=== PATIENT | male | born 1950 | race Two or more races ===

== ENCOUNTER 2021-09-26 10:35 | Emergency (ER) | payer OTHER, SELFPAY ==
--- NOTE | ~2021-09-26 | XR_ITS ---
EXAMINATION: XR RIBS, LEFT CLINICAL INFORMATION: Pain status post fall COMPARISON: None TECHNIQUE: 5 views FINDINGS: S-shaped scoliosis noted. Clips consistent cholecystectomy. Lungs are clear. No consolidation, pneumothorax, or pleural effusion. The cardiomediastinal silhouette and pulmonary vasculature are normal. Osseous structures are unremarkable. Ribs are intact. No fractures are identified. XR/XR ribs LT min 3V w CXR1V IMPRESSION: No fracture.
[2021-09-26 11:13] VITALS: BP 189/98; PULSE 65; RESP 18; TEMP 36; O2SAT 97; BMI 24.2
[2021-09-26 18:09] VITALS: BP 209/101; PULSE 57; TEMP 36.9; O2SAT 98
[2021-09-26] MEDS: Acetaminophen 325 MG TABLET 650 MG PO (18:26)
--- NOTE | 2021-09-26 18:28 | PC.NURSE ---
pts BP elevated. informed charge of high BP. pt reporting 11/14 pain medicated with PO tylenol. lungs clear throughout.
[2021-09-26 19:21] VITALS: BP 186/97; PULSE 56; RESP 14; O2SAT 98
[2021-09-26 19:24] VITALS: BP 181/98
--- NOTE | 2021-09-26 20:09 | ED_ITS ---
HPI - Fall General Chief Complaint: Fall Stated Complaint: L Side Pain S/P Fall 3 Days Ago Time Seen by Provider: 09/26/21 14:14 Source: patient Mode of arrival: ambulatory Limitations: language barrier History of Present Illness HPI Narrative: 71-year-old male presents for left-sided chest wall pain and bruising after falling off of his tractor on Tuesday. 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 He did not report hitting his head, losing consciousness, and denies neck pain, palpitations, shortness of breath, diaphoresis, abdominal pain, abdominal distention, dysuria, hematuria, loss of balance, or symptoms indicating cauda equina. MD complaint: fall Onset (ago): day(s) (4) Fall from: standing and down stairs (#) (1) Fall witnessed: no Place fall occurred: work Loss of consciousness: none Prolonged down time: no Symptoms prior to fall: none Context: tripped/slipped Location of injury: chest Severity: moderate Severity scale (1-10): 6 Quality: aching Associated symptoms (after fall): denies Related Data Previous Rx's Medication Instructions Recorded oxycodone 5 mg tablet 5 mg PO Q8H PRN pain 3 days #9 tabs 09/26/21 Allergies Allergy/AdvReac Type Severity Reaction Status Date / Time No Known Allergies Allergy Verified 09/26/21 11:14 Review of Systems Review of Systems: Constitutional: No Fever, No Chills ENT/Mouth: No Ear Pain, No Hoarseness, No sore throat Eyes: No Eye Pain, No Swelling, No Redness, No Foreign Body Cardiovascular: No Chest Pain, No SOB Respiratory: No Cough, No Dyspnea Gastrointestinal: No Nausea, No Vomiting, No Diarrhea, No abdominal Pain Genitourinary: No Dysuria, No Hematuria Musculoskeletal: positive chest wall pain, No Myalgias, No Joint Swelling Skin: No Skin lacerations, No rash Neuro: No Weakness, No Numbness, No Paresthesias, No Loss of Consciousness, No Dizziness, No Headache Psych: No Anxiety/Panic, No Depression Heme/Lymph: no easy bruising, no Lymphadenopathy Endocrine: No Polyuria, No Polydipsia Yes all other systems are reviewed and are negative [facility] Past Medical History Attestation statement: The following information was validated with the patient. Source: old records reviewed Social History Social History Patient Tobacco Use Status: Never used Tobacco Use of substances other than those prescribed or required for medical reasons: No Advance Directives: No Advance Directives Information Provided: Yes Physical Exam 2 Vital Signs: Vital Signs: Last Vital Signs Temp 98.5 F 09/26/21 18:09 Pulse 56 09/26/21 19:21 Resp 14 09/26/21 19:21 BP 181/98 H 09/26/21 19:24 Pulse Ox 98 09/26/21 19:21 O2 Del Method 09/26/21 19:21 BMI result Body Mass Index 24.2 Appearance: Alert. Oriented X3. No acute distress. Eyes: Pupils equal, round and reactive to light. ENT: Pharynx normal. Neck: Normal inspection. Neck supple. CVS: Normal heart rate and rhythm. Apical pulse equal pulses to extremities. 4 cm x 3 cm bruising noted lateral chest wall between ribs 5 through 8. Reproducible chest pain to palpation. Left lateral chest wall pain on sternal pressure. Respiratory: No respiratory distress. Lung sounds clear to auscultation all lobes. Even unlabored respirations. Abdomen: Soft and nontender. No pulsatile masses. Skin: Skin warm and dry. Normal skin color. Normal skin turgor. Extremities: Gait well-balanced well coordinated. Neuro: No motor deficit. No sensory deficit. Cranial nerves 2-12 intact. Course Course Course Narrative: 9 hour wait in the emergency department waiting room 71-year-old male presents for evaluation for injury sustained from falling off his tractor on Tuesday. He has some left chest wall bruising between ribs 5 and 8, chest x-ray was completed while patient was in the emergency department waiting room, no acute findings. Patient's physical exam is consistent with rib contusion versus rib fracture. Patient does have full range of motion to all extremities although tender on movement. Patient does have pain when laying on the side, laying flat, and when taking a deep breath. Vital signs are stable and within normal limits. Injury occurred over 4 days ago. Plan care to treat for rib contusion, rib fracture. tool and die maker apprentice was utilized for all correspondence. Google translate utilized for discharge instructions. Patient verbalized understanding of and agrees plan of care discharge home. Verbalized understanding of signs symptoms indicating need for emergent intervention. MDM - Fall Differential Diagnosis Differential diagnosis: Likely dislocation and fracture Medical Records Attestation: I reviewed the patient's medical records. Imaging Data Rib x-ray: Attestation: I personally reviewed and interpreted this imaging study as follows: Radiologist's impression: EXAMINATION: XR RIBS, LEFT CLINICAL INFORMATION: Pain status post fall COMPARISON: None TECHNIQUE: 5 views FINDINGS: S-shaped scoliosis noted. Clips consistent cholecystectomy. Lungs are clear. No consolidation, pneumothorax, or pleural effusion. The cardiomediastinal silhouette and pulmonary vasculature are normal. Osseous structures are unremarkable. Ribs are intact. No fractures are identified. XR/XR ribs LT min 3V w CXR1V IMPRESSION: No fracture. Discharge Plan Discharge Clinical Impression: Contusion of rib on left side Patient Disposition: Home, Self-Care Instructions: Rib Contusion (ED) Additional Instructions: Fue evaluado por lesiones sufridas por carson ca?da. Tiene contusiones en las costillas del lado talib. [place] oxicodona 5 mg cada 8 horas seg?n sea necesario para controlar el dolor. Pham medicamento es un narc?sudha y tiene un alto riesgo de adicci?n y abuso. No conduzca ni maneje maquinaria mientras davey pham medicamento. Pham medicamento puede retrasar el tiempo de reacci?n, aumentar el riesgo de ca?jang, causar somnolencia y estre?imiento. [place] MiraLax diariamente mientras davey pham medicamento para ablandar las heces. Seguimiento con atenci?n de urgencia de [place] para establecer atenci?n primaria. Seguimiento con el Dr. Kang. Bunny por elegir pham departamento de emergencias para holloway evaluaci?n. Por favor, titi un seguimiento con el m?dico de atenci?n primaria seg?n sea necesario. Regrese al departamento de emergencias por cualquier s?ntoma nuevo, preocupante o que empeore. You were evaluated for injuries sustained from a fall. You have left-sided rib contusions. Please take oxycodone 5 mg every 8 hours as needed for pain management. This medication is a narcotic and has high risk for addiction and abuse. Do not drive or operate machinery while taking this medication. This medication can delay reaction time, increased risk for falls, cause drowsiness, and cause constipation. Take MiraLax daily while taking this medication to soften stools. Follow-up with [place] urgent care to establish primary care. Follow-up with Dr. Kang. Thank you for choosing this emergency department for evaluation. Please follow-up with primary care physician as needed. Return to the emergency department for any new, concerning, or worsening symptoms. Prescriptions: New oxycodone 5 mg tablet 5 mg PO Q8H PRN (Reason: pain) 3 Days Qty: 9 0RF Rx Instructions: Partial Fill upon patient request. Left-sided rib contusions Referrals: Los Kang MD [Physician] - 1 week Stand Alone Forms: Work/School Release
== END 2021-09-26 22:00 | disposition home or self-care (01) ==
PROVIDERS: Emergency Provider Emergency Medicine; PCP Internal Medicine
DX: S20.212A Contusion of left front wall of thorax, initial encounter (principal); W17.89XA Other fall from one level to another, initial encounter; Y93.89 Activity, other specified; Y92.73 Farm field as the place of occurrence of the external cause; Y99.0 Civilian activity done for income or pay
CPT/HCPCS: 71101; 99283; 99284

== ENCOUNTER 2021-12-02 09:32 | Emergency (ER) | payer MEDICARE, SELFPAY ==
[2021-12-02 11:19] VITALS: BP 167/96; PULSE 86; RESP 16; TEMP 36.8; O2SAT 97; BMI 24.2
[2021-12-02 11:33] LABS: MANUAL DIFF FLAG NO
[2021-12-02 11:38] LABS: Basophils Absolute Auto 0.1 X10*3/uL (0.0-0.2); Basophils Percent Auto 0.8 % (0-2); Eosinophils Absolute Auto 0.1 X10*3/uL (0.0-0.4); Eosinophils Percent Auto 0.8 % (0-4); Hematocrit 44.6 % (42.0-52.0); Hemoglobin 14.6 g/dl (14.0-18.0); Imm Gran Abs Auto 0.04 X10*3/uL (0.00-0.03); Imm Gran Pct Auto 0.3 % (0.0-0.4); Lymphocytes Absolute Auto 1.8 X10*3/uL (1.2-4.9); Lymphocytes Percent Auto 15.3 % (20-40); Mean Corpuscular HGB Conc 32.7 g/dl (31.0-36.0); Mean Corpuscular Hemoglobin 28.3 pg (27.0-33.0); Mean Corpuscular Volume 86.4 fL (80.0-98.0); Monocytes Percent Auto 8.1 % (2-11); Neutrophils Absolute Auto 8.9 x10*3/uL (2.0-8.3); Neutrophils Percent Auto 74.7 % (45-73); Platelet Count 243 X10*3/uL (160-400); Red Blood Count 5.16 X10*6/uL (4.60-5.80); Red Cell Distribution Width 12.5 % (11.0-16.0); White Blood Count 11.9 X10*3/uL (4.8-10.8)
[2021-12-02 11:51] LABS: Anion Gap 15 (12-20); Blood Urea Nitrogen 17 mg/dL (9-16); Calcium 9.1 mg/dL (8.4-10.2); Carbon Dioxide 25 mmol/L (22-29); Chloride 105 mmol/L (96-108); Creatinine Clr Calc Pharmacy 54.7; Estimated Glomerular Filt Rate > 60; Glucose Random 126 mg/dL (60-115); Sodium 141 mmol/L (135-145)
[2021-12-02 23:33] VITALS: BP 174/100; PULSE 74; RESP 17; TEMP 36.9; O2SAT 97
--- NOTE | 2021-12-03 01:33 | ED.SKABFB ---
HPI - Skin/Abscess/Foreign Bdy General Chief complaint: Skin/Abscess/Foreign Body Stated complaint: cyst in R knee Time Seen by Provider: 12/03/21 01:08 Source: patient Mode of arrival: ambulatory Limitations: language barrier ( Malagasy speaking only, diplomatic interpreter/translator used) History of Present Illness HPI narrative: 71-year-old male who presents emergency department for evaluation of left knee abscess which is draining and left cellulitis. The patient states that 4 days prior he noted a small pimple on his left knee. He states the double got larger than popped and started draining pulse. He also notice redness around his left knee. He states that the area of redness is painful. he describes the pain as a an intermittent, stabbing pain which is 6/10 at its worst. He states he has lost his appetite but he denied fatigue, fever, chills, nausea or vomiting. 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 MD complaint: abscess/boil Onset (ago): day(s) (4) Tetanus up to date: yes Location: LLE ( The) Severity scale (1-10): 6 Quality: stabbing Pain Consistency: intermittent Relieving factors: none Exacerbating factors: none Context: none Associated symptoms: denies other symptoms Treatments prior to arrival: none Related Data Previous Rx's Medication Instructions Recorded oxycodone 5 mg tablet 5 mg PO Q8H PRN pain 3 days #9 tabs 09/26/21 cephalexin 500 mg capsule 500 mg PO QID 7 days #28 caps 12/03/21 ibuprofen 400 mg tablet 400 mg PO TID PRN fever or pain 12/03/21 #30 tabs Allergies Allergy/AdvReac Type Severity Reaction Status Date / Time No Known Allergies Allergy Verified 09/26/21 11:14 Review of Systems Review of Systems: Yes all other systems are reviewed and are negative [facility] Past Medical History [facility] Narrative: past medical history: None. Past surgical history: Cholecystectomy. Social history: Patient works as a wilcox. He denies tobacco use. He occasionally drinks alcohol. He denies drug use. Social History Social History Patient Tobacco Use Status: Never used Tobacco Advance Directives: No Advance Directives Information Provided: No Physical Exam Vital Signs: Vital Signs: Last Vital Signs Temp 98.5 F 12/02/21 23:33 Pulse 74 12/02/21 23:33 Resp 17 12/02/21 23:33 BP 174/100 H 12/02/21 23:33 Pulse Ox 97 12/02/21 23:33 O2 Del Method 12/02/21 23:33 BMI result Body Mass Index 24.2 Const: General: cooperative and no acute distress Orientation/consciousness: oriented to person and oriented to place Limitations: no limitations HEENT: Head: Yes normal to inspection, Yes normocephalic and Yes atraumatic Ears: external ears normal General nose exam: Normal external nose present Face and sinus: Yes normal facial exam Mouth: Normal oral and palatal mucosa present Throat: Yes posterior oropharynx normal Eyes: General: appearance normal, both eyes and all related structures Pupils: Equal, round and reactive pupils present Neck: Neck: Yes normal visual inspection, Yes no lymphadenopathy, Yes trachea midline and Yes supple Chest: Chest palpation & inspection: normal inspection of the chest and normal palpation of entire chest wall Resp: Effort & Inspection: normal respiratory effort and able to speak in complete sentences Auscultation: clear to auscultation bilaterally Cardio: Rate: regular rate Rhythm: regular rhythm Heart sounds: S1 normal heart sound present, S2 normal heart sound present and no murmurs GI: Inspection: Yes normal to inspection Palpation (GI): Soft to palpation, nontender and no guarding Auscultation: normal bowel sounds : General: Yes no CVA tenderness Back/Spine/Pelvis: Back: no CVA tenderness Skin: General skin exam: no rashes or lesions noted Neuro: General: oriented to person and oriented to place Cranial nerves: Yes CN's II-XII intact bilaterally and Yes Equal, round and reactive pupils present Cognition (Neuro): normal cognition Motor exam (neuro): 5/5 motor strength present throughout Extrem: Other: The patient has a draining abscess of the right knee, with surrounding erythema measuring approximately 10 cm x 6 cm, the erythema is warm to the touch, the patient does not have any obvious joint effusion and has full range of motion of his knee and no difficulty walking. Psych: Appearance: grossly normal Speech and movement: Normal speech and movement present Affect: normal affect Attitude: cooperative Thought process: Normal thought process present Thought content: Normal thought content present Course Course Course Narrative: 71-year-old male who presents emergency department for evaluation draining abscess the left knee with surrounding cellulitis. The patient was started on Keflex 500 mg 4 times a day for 7 days, he is given his 1st dose here in the emergency department. He is also given ibuprofen 400 mg orally. The patient was given printed and verbal instructions and discharged home. He is also given a note to not work for 3 days. MDM - Skin/Abscess/Foreign Bdy Lab Data Result diagrams: 12/02/21 11:28 12/02/21 11:28 Labs: Lab Results 12/02/21 12/02/21 Range/Units 11:28 11:28 WBC 11.9 H (4.8-10.8) X10*3/uL RBC 5.16 (4.60-5.80) X10*6/uL Hgb 14.6 (14.0-18.0) g/dl Hct 44.6 (42.0-52.0) % MCV 86.4 (80.0-98.0) fL MCH 28.3 (27.0-33.0) pg MCHC 32.7 (31.0-36.0) g/dl RDW 12.5 (11.0-16.0) % Plt Count 243 (160-400) X10*3/uL MPV 10.0 (9.4-12.4) fL Immature Gran % (Auto) 0.3 (0.0-0.4) % Neut % (Auto) 74.7 H (45-73) % Lymph % (Auto) 15.3 L (20-40) % Grand % (Auto) 8.1 (2-11) % Eos % (Auto) 0.8 (0-4) % Baso % (Auto) 0.8 (0-2) % Lymph # (Auto) 1.8 (1.2-4.9) X10*3/uL Grand # (Auto) 1.0 (0.1-1.2) X10*3/uL Eos # (Auto) 0.1 (0.0-0.4) X10*3/uL Baso # (Auto) 0.1 (0.0-0.2) X10*3/uL Abs Immat Gran (auto) 0.04 H (0.00-0.03) X10*3/uL Absolute Neuts (auto) 8.9 H (2.0-8.3) x10*3/uL Absolute Nucleated RBC 0.000 (0.0-0.012) X10*3/uL Nucleated RBC % (auto) 0.0 (0.0-0.2) /100WBC Sodium 141 (135-145) mmol/L Potassium 4.0 (3.3-5.1) mmol/L Chloride 105 (96-108) mmol/L Carbon Dioxide 25 (22-29) mmol/L Anion Gap 15 (12-20) BUN 17 H (9-16) mg/dL Creatinine 1.15 (0.5-1.4) mg/dL Estim Creat Clear Calc 54.7 Estimated GFR > 60 Random Glucose 126 H (60-115) mg/dL Calcium 9.1 (8.4-10.2) mg/dL Discharge Plan Discharge Clinical Impression: Abscess of left knee, Cellulitis of knee, left Patient Disposition: Home, Self-Care Instructions: Cellulitis (ED) Additional Instructions: Cellulitis Discharge Instructions You have an abscess which is draining and an infection of your skin(cellulitis). This is usually caused by bacteria on your skin that gets under your skin and then causes the infection Take Keflex 500 mg pills, 1 pill 4 times a day for 1 week. This is an antibiotic that should help your body fight off the infection. Keep the area of cellulitis elevated to help reduce swelling in the infected area and this helps with the healing process Also apply a heating pad on low or a warm compress for 15 minutes, 4-6 times a day. This will increase the blood flow to the area and will bring white blood cells to the area which will help your body fight off the infection. Take Motrin(ibuprofen) 400 mg pills, 1 pills every 6 hours as needed for pain. I jayme a line around the area of cellulitis, the redness should withdraw from the line in the next 1-3 days. If the redness crosses the line this is a sign that the infection is getting worse and you should see your doctor or return to the Emergency Department for a recheck. Other signs of worsening infection include fever, chills, weakness, increased pain, increased redness, increased swelling or red streaks going away from the area of infection. If you develop any of these symptoms or any other symptoms that are concerning to you, see your doctor immediately or return to the Emergency Department. Follow up with your doctor in 3 days for a recheck Please see the work note Prescriptions: New cephalexin 500 mg capsule 500 mg PO QID 7 Days Qty: 28 0RF ibuprofen 400 mg tablet 400 mg PO TID PRN (Reason: fever or pain) Qty: 30 0RF No Action oxycodone 5 mg tablet 5 mg PO Q8H PRN (Reason: pain) 3 Days Qty: 9 0RF Rx Instructions: Partial Fill upon patient request. Left-sided rib contusions Stand Alone Forms: Work/School Release Print Language: Malagasy
[2021-12-03] MEDS: Ibuprofen 400 MG TABLET PO (01:52)
[2021-12-03] MEDS: cephALEXin 500 MG CAPSULE PO (01:52)
== END 2021-12-03 02:11 | disposition home or self-care (01) ==
PROVIDERS: Emergency Provider Emergency Medicine Emergency Medical Services; PCP Internal Medicine
DX: L02.416 Cutaneous abscess of left lower limb (principal); L03.116 Cellulitis of left lower limb
CPT/HCPCS: 36415; 80048; 85025; 99283

== ENCOUNTER 2022-12-27 04:34 | Emergency (ER) | payer MEDICARE, SELFPAY ==
[2022-12-27] VITALS (11 sets, daily range): BP systolic 138–201; BP diastolic 84–112; PULSE 71–833; RESP 15–24; TEMP 36.3–36.8; O2SAT 96–99; BMI 24.9; BMI 25.6
--- NOTE | 2022-12-27 | ECG_ITS ---
Test Reason : CHEST PAIN Blood Pressure : / mmHG Vent. Rate : 078 BPM Atrial Rate : 078 BPM P-R Int : 176 ms QRS Dur : 090 ms QT Int : 366 ms P-R-T Axes : 053 -09 032 degrees QTc Int : 417 ms Normal sinus rhythm with sinus arrhythmia Minimal voltage criteria for LVH, may be normal variant ( R in aVL ) ST elevation, consider early repolarization, pericarditis, or injury Abnormal ECG No previous ECGs available Referred By: Generic ED Physician Electronically Signed By:WILLIAM NAVARRO MD
[2022-12-27 05:00] LABS: Basophils Absolute Auto 0.1 X10*3/uL (0.0-0.2); Basophils Percent Auto 0.8 % (0-2); Eosinophils Absolute Auto 0.2 X10*3/uL (0.0-0.4); Eosinophils Percent Auto 2.6 % (0-4); Hematocrit 46.6 % (42.0-52.0); Hemoglobin 15.2 g/dl (14.0-18.0); Imm Gran Abs Auto 0.03 X10*3/uL (0.00-0.03); Imm Gran Pct Auto 0.4 % (0.0-0.4); Lymphocytes Absolute Auto 1.7 X10*3/uL (1.2-4.9); Lymphocytes Percent Auto 21.5 % (20-40); MANUAL DIFF FLAG NO; Mean Corpuscular HGB Conc 32.6 g/dl (31.0-36.0); Mean Corpuscular Hemoglobin 27.9 pg (27.0-33.0); Mean Corpuscular Volume 85.5 fL (80.0-98.0); Mean Platelet Volume 10.2 fL (9.4-12.4); Monocytes Absolute Auto 0.5 X10*3/uL (0.1-1.2); Monocytes Percent Auto 5.9 % (2-11); Neutrophils Absolute Auto 5.3 x10*3/uL (2.0-8.3); Neutrophils Percent Auto 68.8 % (45-73); Platelet Count 217 X10*3/uL (160-400); Red Blood Count 5.45 X10*6/uL (4.60-5.80); Red Cell Distribution Width 12.3 % (11.0-16.0); White Blood Count 7.8 X10*3/uL (4.8-10.8)
[2022-12-27 05:14] LABS: Alanine Aminotransferase 19 U/L (0-40); Albumin Level 4.1 g/dL (3.5-5.0); Alkaline Phosphatase 87 U/L (39-117); Anion Gap 14 (12-20); Aspartate Amino Transferase 17 U/L (5-37); Bilirubin Total 0.9 mg/dL (0.0-1.0); Blood Urea Nitrogen 17 mg/dL (9-16); Calcium 9.4 mg/dL (8.4-10.2); Carbon Dioxide 23 mmol/L (22-29); Chloride 111 mmol/L (96-108); Creatinine Clr Calc Pharmacy 46.9; Estimated Glomerular Filt Rate 54; Glucose Random 101 mg/dL (60-115); Potassium 3.9 mmol/L (3.3-5.1); Sodium 144 mmol/L (135-145); Total Protein 7.6 g/dL (6.5-8.0)
[2022-12-27 05:19] LABS: Troponin-I High Sensitivity 16.8 ng/L (<3.5-35.0)
--- NOTE | 2022-12-27 05:20 | PC.NURSE ---
abnormal heart rhythm on monitor; NSR with inverted t waves. bp elevated 185/108. pt having sx R. sided cp/lightheadedness. Dr. Mcelroy made aware; no new orders at this time. IV established. labs/ekg previously obtained in triage. sats 97% on RA. son at bedside. call almanzar within reach.
[2022-12-27 07:05] LABS: Appearance Urine Clear; Color Urine Yellow; Glucose Urine UA Negative (Negative); Leukocyte Esterase Urine Negative (Negative); Nitrite Urine Negative (Negative); Urine Blood Negative (Negative); Urine Ketones Negative (Negative); Urine Protein Negative (Neg-Trace)
--- NOTE | 2022-12-27 07:11 | ED.CHESTPAIN ---
HPI - Chest Pain General Chief Complaint: Chest Pain Stated Complaint: Chest Pain Time Seen by Provider: 12/27/22 07:11 Source: patient, RN notes reviewed and per diem interpreter Mode of arrival: ambulatory Limitations: language barrier (Spool Sander used) History of Present Illness HPI narrative: This is a 72-year-old thai speaking male, with no known past medical history, presenting to the emergency department for evaluation of intermittent epigastric and chest pain x1 week. Patient reports that 1 week ago he developed intermittent epigastric/chest pain which has since been more frequent and severe. He states that the pain radiates into his back intermittently. He also reports that the pain comes and goes, typically resolves after 30 minutes. He often times has a burning sensation into his epigastrium, worsening after eating. He also endorses some shortness of breath and constipation. He states he last moved his bowels yesterday. No fevers, chills, palpitations, nausea, vomiting, or diarrhea. Denies history of similar symptoms before. During this assessment, he had no chest pain. No other complaints or concerns at this time. MD complaint: chest pain Onset (ago): week(s) Timing of current episode: episodic Prior episodes: No Related Data Previous Rx's Medication Instructions Recorded oxycodone 5 mg tablet 5 mg PO Q8H PRN pain 3 days #9 tabs 09/26/21 cephalexin 500 mg capsule 500 mg PO QID 7 days #28 caps 12/03/21 ibuprofen 400 mg tablet 400 mg PO TID PRN fever or pain 12/03/21 #30 tabs Allergies Allergy/AdvReac Type Severity Reaction Status Date / Time No Known Allergies Allergy Verified 09/26/21 11:14 Review of Systems Review of Systems: Yes all other systems are reviewed and are negative Constitutional: Constitutional: Reports as per [facility] Social History Social History Patient Tobacco Use Status: Never used Tobacco Smoked in Last 30 Days: No Use of substances other than those prescribed or required for medical reasons: No Advance Directives: No Advance Directives Information Provided: No Physical Exam Vital Signs: Vital Signs: Last Vital Signs Temp 97.9 F 12/27/22 09:48 Pulse 91 12/27/22 10:39 Resp 15 12/27/22 10:39 BP 138/84 12/27/22 10:39 Pulse Ox 97 12/27/22 10:39 O2 Del Method Nasal Cannula 12/27/22 10:39 O2 Flow Rate 1 12/27/22 10:39 BMI result Body Mass Index 25.6 Const: General: cooperative, comfortable and no acute distress Orientation/consciousness: patient oriented x3 Limitations: no limitations HEENT: Head: Yes normal to inspection, Yes normocephalic and Yes atraumatic Ears: hearing grossly normal bilaterally General nose exam: Normal external nose present Face and sinus: Yes normal facial exam Mouth: Normal oral and palatal mucosa present, oropharynx normal and moist mucous membranes Throat: Yes posterior oropharynx normal Eyes: General: appearance normal, both eyes and all related structures Eyelids: Yes eyelids normal Conjunctivae: conjunctivae normal Sclerae: sclerae normal Pupils: Equal, round and reactive pupils present EOM: EOMs intact bilaterally Neck: Neck: Yes normal visual inspection, Yes full ROM and Yes no lymphadenopathy Lymphatic: no lymphadenopathy noted Chest: Chest palpation & inspection: normal inspection of the chest and normal palpation of entire chest wall Resp: Effort & Inspection: normal respiratory effort and able to speak in complete sentences Auscultation: clear to auscultation bilaterally, no crackles, no rales, no rhonchi and no wheezes Cardio: Rate: regular rate Rhythm: regular rhythm Heart sounds: S1 normal heart sound present and S2 normal heart sound present GI: Other: Mild epigastric tenderness to palpation. Inspection: Yes normal to inspection Skin: General skin exam: no rashes or lesions noted Trauma: no lacerations or abrasions Wounds: no wounds Neuro: General: patient oriented x3 and moves all extremities Cranial nerves: Yes Equal, round and reactive pupils present Extrem: General: Yes normal to inspection Right upper extremity: normal to inspection Left upper extremity: normal to inspection Right lower extremity: normal to inspection Left lower extremity: normal to inspection Course Reevaluation(s) Reevaluation #1: Positive delta troponin 16.8 > 45.7. Patient has a heart score of 8. Concern for ACS. Case discussed with my attending physician Dr. Ng. Repeat EKG revealing improved ST elevation at V3 V4. Case discussed with Dr. Krishnan, reports that the 1st EKG looks like hyperacute T-waves. Dr. Krishnan recommending IV heparin, nitroglycerin IV, and to reach out to STEMI team for further evaluation. Aspirin 162 mg p.o. and repeat EKG ordered. Patient now reporting 5/10 chest pain. Nitroglycerin .1mg SL ordered, however not given, as IV nitroglycerin was administered. Time: 08:14 Reevaluation #2: Case discussed with [facility] STEMI team, Dr. Rosa, who recommends transfer to [facility] - Intermediate Cardiac Unit. Recommending to be NPO. Transfer of care initiated. Discussed care and hospital course with patient and son at bedside, answered all questions, transfer in progress. Time: 08:48 Medications Administered Discontinued Medications Generic Name Dose Route Start Last Admin Trade Name Freq PRN Reason Stop Dose Admin Al Hydroxide/Mg Hydroxide 30 ml 12/27/22 07:37 12/27/22 08:21 Magnesium Hydrox/Alum Hydrox 30 Ml Oral.Susp PO 12/27/22 07:38 Not Given ONCE ONE Aspirin 162 mg 12/27/22 08:18 12/27/22 08:28 Aspirin 81 Mg Tab.Chew PO 12/27/22 08:19 162 mg ONCE ONE Administration Heparin Sodium (Porcine) 4,000 unit 12/27/22 08:37 12/27/22 09:54 Heparin Sodium,Porcine 5,000 Unit/Ml Vial IVPUSH 12/27/22 08:38 4,000 unit ONCE ONE Administration Nitroglycerin/Dextrose 100 mg in 250 mls @ 0 mls/hr 12/27/22 08:45 12/27/22 09:56 Nitroglycerin/D5w IVCONT 266.67 mcg/min .Q0M ELEN 40 mls/hr Titration Protocol Per Protocol Heparin Sodium/Sodium Chloride 25,000 unit in 250 mls @ 0 mls/hr 12/27/22 09:30 12/27/22 10:03 Heparin Sodium,Porcine/1/2ns IVCONT 12 units/kg/hr .Q0M ELEN 8.63 mls/hr Administration Protocol Per Protocol Lidocaine HCl 15 ml 12/27/22 07:37 12/27/22 08:20 Lidocaine Hcl Viscous 2 % 15 Ml Solution MUCOUS MEM 12/27/22 07:38 Not Given ONCE ONE Nitroglycerin 1 inch 12/27/22 08:18 12/27/22 08:36 Nitroglycerin 2 % Oint 1 Gm Packet TRANSDERMA 12/27/22 08:19 Not Given ONCE ONE Medical Decision Making Medical Decision Making [facility] Narrative: 72-year-old thai speaking male, with no known past medical history, presenting to the emergency department for evaluation of intermittent epigastric and chest pain x1 week. On arrival at 04:36AM, blood pressure elevated at 201/103. All other vital signs within normal limits. Physical examination performed at 7:55 a.m.. HPI concerning for ACS. EKG revealing ST elevation at V3 and V4. Troponin and basic labs are ordered in triage. Plan: Labs, EKG Differential Diagnosis Differential Diagnoses: The differential diagnosis associated with the presentation includes ACS, STEMI, NSTEMI, pericarditis Admission/Observation Consideration of admission/observation: Escalation of care including admission/observation considered Concerning for STEMI Consult Healthcare Provider Management of the patient was discussed with: Real Estate Paralegal Dr. Krishnan - cardiology Lab Data [facility] Lab Attestation statement: I reviewed the patient's lab results. No leukocytosis, stable H&H. Positive delta change 16.8-45.7 12/27/22 04:54 12/27/22 04:54 Labs: Lab Results 12/27/22 12/27/22 12/27/22 Range/Units 04:54 06:58 08:53 WBC 7.8 (4.8-10.8) X10*3/uL RBC 5.45 (4.60-5.80) X10*6/uL Hgb 15.2 (14.0-18.0) g/dl Hct 46.6 (42.0-52.0) % MCV 85.5 (80.0-98.0) fL MCH 27.9 (27.0-33.0) pg MCHC 32.6 (31.0-36.0) g/dl RDW 12.3 (11.0-16.0) % Plt Count 217 (160-400) X10*3/uL MPV 10.2 (9.4-12.4) fL Immature Gran % (Auto) 0.4 (0.0-0.4) % Neut % (Auto) 68.8 (45-73) % Lymph % (Auto) 21.5 (20-40) % [place] % (Auto) 5.9 (2-11) % Eos % (Auto) 2.6 (0-4) % Baso % (Auto) 0.8 (0-2) % Lymph # (Auto) 1.7 (1.2-4.9) X10*3/uL [place] # (Auto) 0.5 (0.1-1.2) X10*3/uL Eos # (Auto) 0.2 (0.0-0.4) X10*3/uL Baso # (Auto) 0.1 (0.0-0.2) X10*3/uL Abs Immat Gran (auto) 0.03 (0.00-0.03) X10*3/uL Absolute Neuts (auto) 5.3 (2.0-8.3) x10*3/uL Absolute Nucleated RBC 0.000 (0.0-0.012) X10*3/uL Nucleated RBC % (auto) 0.0 (0.0-0.2) /100WBC PT 11.8 (11.1-13.3) SEC INR 1.0 (0.9-1.1) aPTT Heparin Protocol 29.0 L (53-77.9) SEC Sodium 144 (135-145) mmol/L Potassium 3.9 (3.3-5.1) mmol/L Chloride 111 H (96-108) mmol/L Carbon Dioxide 23 (22-29) mmol/L Anion Gap 14 (12-20) BUN 17 H (9-16) mg/dL Creatinine 1.32 (0.5-1.4) mg/dL Estim Creat Clear Calc 46.9 Estimated GFR 54 Random Glucose 101 (60-115) mg/dL Calcium 9.4 (8.4-10.2) mg/dL Total Bilirubin 0.9 (0.0-1.0) mg/dL AST 17 (5-37) U/L ALT 19 (0-40) U/L Alkaline Phosphatase 87 (39-117) U/L Troponin I High Sens 16.8 45.7 H D (<3.5-35.0) ng/L Total Protein 7.6 (6.5-8.0) g/dL Albumin 4.1 (3.5-5.0) g/dL Urine Color Yellow Urine Appearance Clear Urine pH 7.0 (5.0-9.0) Ur Specific [place] 1.010 (1.005-1.025) Urine Protein Negative (Neg-Trace) mg/dL Urine Glucose (UA) Negative (Negative) mg/dL Urine Ketones Negative (Negative) mg/dL Urine Blood Negative (Negative) Urine Nitrite Negative (Negative) Ur Leukocyte Esterase Negative (Negative) COVID-19 (MARGI) (Negative) COVID-19 Clin Com 12/27/22 Range/Units 09:15 WBC (4.8-10.8) X10*3/uL RBC (4.60-5.80) X10*6/uL Hgb (14.0-18.0) g/dl Hct (42.0-52.0) % MCV (80.0-98.0) fL MCH (27.0-33.0) pg MCHC (31.0-36.0) g/dl RDW (11.0-16.0) % Plt Count (160-400) X10*3/uL MPV (9.4-12.4) fL Immature Gran % (Auto) (0.0-0.4) % Neut % (Auto) (45-73) % Lymph % (Auto) (20-40) % [place] % (Auto) (2-11) % Eos % (Auto) (0-4) % Baso % (Auto) (0-2) % Lymph # (Auto) (1.2-4.9) X10*3/uL [place] # (Auto) (0.1-1.2) X10*3/uL Eos # (Auto) (0.0-0.4) X10*3/uL Baso # (Auto) (0.0-0.2) X10*3/uL Abs Immat Gran (auto) (0.00-0.03) X10*3/uL Absolute Neuts (auto) (2.0-8.3) x10*3/uL Absolute Nucleated RBC (0.0-0.012) X10*3/uL Nucleated RBC % (auto) (0.0-0.2) /100WBC PT (11.1-13.3) SEC INR (0.9-1.1) aPTT Heparin Protocol (53-77.9) SEC Sodium (135-145) mmol/L Potassium (3.3-5.1) mmol/L Chloride (96-108) mmol/L Carbon Dioxide (22-29) mmol/L Anion Gap (12-20) BUN (9-16) mg/dL Creatinine (0.5-1.4) mg/dL Estim Creat Clear Calc Estimated GFR Random Glucose (60-115) mg/dL Calcium (8.4-10.2) mg/dL Total Bilirubin (0.0-1.0) mg/dL AST (5-37) U/L ALT (0-40) U/L Alkaline Phosphatase (39-117) U/L Troponin I High Sens (<3.5-35.0) ng/L Total Protein (6.5-8.0) g/dL Albumin (3.5-5.0) g/dL Urine Color Urine Appearance Urine pH (5.0-9.0) Ur Specific [place] (1.005-1.025) Urine Protein (Neg-Trace) mg/dL Urine Glucose (UA) (Negative) mg/dL Urine Ketones (Negative) mg/dL Urine Blood (Negative) Urine Nitrite (Negative) Ur Leukocyte Esterase (Negative) COVID-19 (MARGI) Negative (Negative) COVID-19 Clin Com See Note Independent Interpretation I performed an independent interpretation of an: EKG Interpretation: EKG #1 12/27/2022 04:45AM EKG normal sinus rhythm with sinus arrhythmia at a ventricular rate of [address] elevation noted at V3, V4. EKG #2 12/27/2022 08:21AM EKG normal sinus rhythm at a ventricular rate 72 BPM, ST elevation improved in V3, V4, however still present. Scores Heart Score History: -2- highly suspicious ECG: -2- significant ST-deviation Age: -2- > or = 65 Risk factory: -0- no risk factors known Troponin: -1- >1 - <3x normal limit Score: 7 Risk: 50.1% Discharge Plan Discharge Clinical Impression: ST elevation (STEMI) myocardial infarction Patient Disposition: [facility] Acute Care Hospital Transfer Details: [facility] intermediate cardiac unit - Dr. Reid Rosa Prescriptions: No Action oxycodone 5 mg tablet 5 mg PO Q8H PRN (Reason: pain) 3 Days Qty: 9 0RF Rx Instructions: Partial Fill upon patient request. Left-sided rib contusions cephalexin 500 mg capsule 500 mg PO QID 7 Days Qty: 28 0RF ibuprofen 400 mg tablet 400 mg PO TID PRN (Reason: fever or pain) Qty: 30 0RF Interventions: Acute Care Transfer Worksheet (ED) Last Done: 12/27/22 10:49 ED Discharge Assessment Last Done: 12/27/22 10:50 Discharge Date/Time: 12/27/22 10:52
[2022-12-27 07:53] LABS: Troponin-I High Sensitivity 45.7 ng/L (<3.5-35.0)
--- NOTE | 2022-12-27 07:56 | PC.NURSE ---
PT IS A/O X 4 NO SOB/ERIKA NOTED. LUNGS - CTA. HEART SOUNDS - REGULAR. ABD SOFT AND NON-TENDER. NO EDEMA NOTED. HTN ON THE BIOLOGICAL SCIENCES INSTRUCTOR, PT STATES THAT HE DOES NOT TAKE ANY REGULAR MEDS AND HE DOES NOT HAVE A PCP AT THIS TIME. PT IS ASYMPTOMATIC WITH B/P. PT RE-ASSESSED BY MLP (YONI) WITH [employer]. PT AWARE OF PLAN OF CARE.
--- NOTE | 2022-12-27 08:18 | ECG_ITS ---
Test Reason : CHEST PAIN Blood Pressure : / mmHG Vent. Rate : 072 BPM Atrial Rate : 072 BPM P-R Int : 174 ms QRS Dur : 084 ms QT Int : 348 ms P-R-T Axes : 040 -11 007 degrees QTc Int : 381 ms Normal sinus rhythm Minimal voltage criteria for LVH, may be normal variant ( R in aVL ) Inferior infarct , age undetermined Abnormal ECG When compared with ECG of 27-DEC-2022 04:45, No significant changes seen Referred By: Evelin Lawson Electronically Signed By:WILLIAM NAVARRO MD
[2022-12-27] MEDS: Aspirin 81 MG TAB.CHEW 162 MG PO (08:28)
[2022-12-27] MEDS: Nitroglycerin/D5W 100 MG/250 ML INFUS..BTL IVCONT (09:21)
[2022-12-27 09:33] LABS: Prothrombin Time 11.8 SEC (11.1-13.3)
[2022-12-27 09:44] LABS: COVID-19 Test Negative (Negative); IDNOW Serial# BCCEAD1C
[2022-12-27] MEDS: Heparin Sodium,Porcine 5,000 UNIT/ML VIAL 4000 UNIT IVPUSH (09:54)
[2022-12-27] MEDS: Heparin Sodium,Porcine/1/2NS 25,000 UNIT/250 ML IV.SOLN 8.63 UNIT IVCONT (10:03)
--- NOTE | 2022-12-27 10:17 | PC.NURSE ---
RN TO RN REPORT GIVEN TO MARILYN AT [facility] [place]. PT TO BE TRANSFERRED VIA AMBULANCE TO CICU, M3 ROOM 2. PT/SON AWARE OF PLAN OF CARE.
--- NOTE | 2022-12-27 10:43 | PC.NURSE ---
nitro drip held per protocol 2ndary to vs 138/84. mlp (zeke ) aware.
--- NOTE | 2022-12-27 10:47 | PC.NURSE ---
HEART RATE FOR PT AT 0921 WAS 83 AND NOT 833.
== END 2022-12-27 10:52 | disposition short-term general hospital (02) ==
PROVIDERS: Physician Assistant Medical; Emergency Provider Emergency Medicine
DX: I21.3 ST elevation (STEMI) myocardial infarction of unspecified site (principal); R07.89 Other chest pain; R10.13 Epigastric pain; Z20.822 Contact with and (suspected) exposure to COVID-19; Z20.828 Contact with and (suspected) exposure to other viral communicable diseases; Z79.899 Other long term (current) drug therapy
CPT/HCPCS: 36415; 80053; 81003; 84484; 85025; 85610; 85730; 87635; 93005; 96365; 96375; 99285; J1643

== ENCOUNTER 2023-04-11 07:59 | Outpatient (REF) | payer MEDICARE, SELFPAY ==
[2023-04-11 08:23] LABS: MANUAL DIFF FLAG NO
[2023-04-11 08:51] LABS: Basophils Absolute Auto 0.1 X10*3/uL (0.0-0.2); Basophils Percent Auto 0.9 % (0-2); Eosinophils Absolute Auto 0.2 X10*3/uL (0.0-0.4); Eosinophils Percent Auto 3.2 % (0-4); Hematocrit 41.7 % (42.0-52.0); Hemoglobin 13.8 g/dl (14.0-18.0); Imm Gran Abs Auto 0.02 X10*3/uL (0.00-0.03); Imm Gran Pct Auto 0.3 % (0.0-0.4); Lymphocytes Absolute Auto 1.7 X10*3/uL (1.2-4.9); Lymphocytes Percent Auto 25.8 % (20-40); Mean Corpuscular HGB Conc 33.1 g/dl (31.0-36.0); Mean Corpuscular Hemoglobin 27.4 pg (27.0-33.0); Mean Corpuscular Volume 82.7 fL (80.0-98.0); Mean Platelet Volume 10.8 fL (9.4-12.4); Monocytes Absolute Auto 0.5 X10*3/uL (0.1-1.2); Monocytes Percent Auto 7.1 % (2-11); Neutrophils Absolute Auto 4.2 x10*3/uL (2.0-8.3); Neutrophils Percent Auto 62.7 % (45-73); Platelet Count 204 X10*3/uL (160-400); Red Blood Count 5.04 X10*6/uL (4.60-5.80); Red Cell Distribution Width 12.7 % (11.0-16.0); White Blood Count 6.6 X10*3/uL (4.8-10.8)
[2023-04-11 09:22] LABS: Alanine Aminotransferase 19 U/L (0-40); Alkaline Phosphatase 89 U/L (39-117); Anion Gap 12 (12-20); Aspartate Amino Transferase 17 U/L (5-37); Bilirubin Total 1.1 mg/dL (0.0-1.0); Blood Urea Nitrogen 17 mg/dL (9-16); Calcium 9.4 mg/dL (8.4-10.2); Carbon Dioxide 25 mmol/L (22-29); Chloride 108 mmol/L (96-108); Cholesterol 106 mg/dL (<200); Estimated Glomerular Filt Rate > 60; Glucose Random 85 mg/dL (60-115); HDL Cholesterol 29 mg/dL (>40); LDL Cholesterol Calculated 58 mg/dL (<100); Potassium 4.1 mmol/L (3.3-5.1); Sodium 141 mmol/L (135-145); Total Protein 7.3 g/dL (6.5-8.0); Triglycerides 99 mg/dL (<150)
[2023-04-11 09:36] LABS: Prostate Specific Antigen Scr 0.53 ng/mL (<0.05-4.0)
== END 2023-04-11 08:00 | disposition home or self-care (01) ==
LOC: HO.LAB 07:59
PROVIDERS: PCP Internal Medicine; Visit Provider Internal Medicine
DX: E78.1 Pure hyperglyceridemia (principal); I10 Essential (primary) hypertension; N40.0 Benign prostatic hyperplasia without lower urinary tract symptoms; Z86.010 Personal history of colon polyps; Z95.818 Presence of other cardiac implants and grafts; Z12.5 Encounter for screening for malignant neoplasm of prostate
CPT/HCPCS: 36415; 80053; 80061; 84153; 85025

== ENCOUNTER 2023-06-14 06:11 | Outpatient (REF) | payer MEDICARE, SELFPAY ==
[2023-06-14 07:34] LABS: Alanine Aminotransferase 17 U/L (0-40); Aspartate Amino Transferase 18 U/L (5-37); Cholesterol 116 mg/dL (<200); HDL Cholesterol 34 mg/dL (>40); LDL Cholesterol Calculated 71 mg/dL (<100); Triglycerides 58 mg/dL (<150)
== END 2023-06-14 06:12 | disposition home or self-care (01) ==
LOC: HO.LAB 06:11
PROVIDERS: PCP Internal Medicine; Visit Provider Internal Medicine Cardiovascular Disease
DX: I21.3 ST elevation (STEMI) myocardial infarction of unspecified site (principal)
CPT/HCPCS: 36415; 80061; 84450; 84460

== ENCOUNTER 2023-08-08 06:09 | Outpatient (REF) | payer MEDICARE, SELFPAY ==
[2023-08-08 08:42] LABS: Alanine Aminotransferase 24 U/L (0-40); Albumin Level 3.9 g/dL (3.5-5.0); Alkaline Phosphatase 95 U/L (39-117); Anion Gap 9 (12-20); Aspartate Amino Transferase 20 U/L (5-37); Bilirubin Total 0.9 mg/dL (0.0-1.0); Blood Urea Nitrogen 17 mg/dL (9-16); Calcium 9.2 mg/dL (8.4-10.2); Carbon Dioxide 28 mmol/L (22-29); Chloride 108 mmol/L (96-108); Estimated Glomerular Filt Rate > 60; Glucose Random 85 mg/dL (60-115); Potassium 4.3 mmol/L (3.3-5.1); Sodium 141 mmol/L (135-145); Total Protein 7.1 g/dL (6.5-8.0)
== END 2023-08-08 06:10 | disposition home or self-care (01) ==
LOC: HO.LAB 06:09
PROVIDERS: PCP Internal Medicine; Visit Provider Internal Medicine
DX: E78.00 Pure hypercholesterolemia, unspecified (principal); H61.22 Impacted cerumen, left ear; I10 Essential (primary) hypertension; Z86.010 Personal history of colon polyps
CPT/HCPCS: 36415; 80053

== ENCOUNTER 2023-11-30 09:19 | Outpatient (AMB) | payer MEDICARE, SELFPAY ==
--- NOTE | 2023-11-30 09:22 | MHC.OFFVIS ---
Vital Signs 11/30/23 09:34 Height 5 ft 6 in Weight 145 lb 8.081 oz BMI 23.5 BP 156/91 H Blood Pressure Location Rt brachial Position Sitting Pulse 61 Intake Visit Reasons: Colonoscopy screening Intake Note: Michael presents as a new patient for colonoscopy screening. CC: Last colonoscopy per patient was around 2010 at [facility]. Patient states that he sometimes has a mild abdominal pain and his PCP started him on Pantoprazole 40 mg. Per patient he occasionally has constipation. Denies other GI concerns today. Analyst Competitive Intelligence Required: Yes Analyst Competitive Intelligence Name: son Allergies No Known Allergies Allergy (Verified 11/30/23 09:39) HPI HPI Colonoscopy screening: Details: 73-year-old male here for preprocedural meeting to discuss a screening colonoscopy. He is referred by Heladio LEIGH Coronary artery disease status post DC Hypertension Tubular adenoma Nephrolithiasis * SURGICAL HISTORY Cardiac stent Cystoscopy Urethral stent and ureter stent cholecystectomy * ALLERGIES Lisinopril * [employer] LABS: Laboratory Tests 04/11/23 08/08/23 08:22 06:25 WBC 6.6 Hgb 13.8 L Hct 41.7 L MCV 82.7 MCH 27.4 Plt Count 204 Estimated GFR > 60 Total Bilirubin 0.9 AST 20 ALT 24 Alkaline Phosphatase 95 TODAY'S VISIT He had a prior scope [place] [address] Elkins with a TA. He denies any bowel or upper GI problems. No anes or sed problems No ID problems His cardiac conditions are well controlled and he denies any respiratory problems. He had a prior scope [place] [address] Elkins with a TA. [facility] Surgical History (Updated 11/24/23 @ 17:46 by JOSÉ LUIS Navarro) H/O colonoscopy S/P ureteral stent placement H/O cystoscopy H/O heart artery stent Family History (Updated 11/30/23 @ 09:43 by Temitope Nassar [facility]) Father Bone cancer Brother Throat cancer Daughter Breast cancer Brain tumor Sister Liver cancer Social History Alcohol intake: former Patient Tobacco Use Status: Never used Tobacco Review of Systems Const Denies fatigue, Denies fever(s), Denies night sweats, Denies poor appetite and Denies weight loss ENT Reports Normal hearing present, Denies dental pain, Denies dysphagia, Denies hearing loss, Denies mouth pain, Denies odynophagia, Denies throat swelling, Denies tongue swelling and Reports other (Dentition adequate) Card Reports no additional complaints Resp Reports no additional complaints GI Details: Denies abdominal pain, Denies melena, Denies bloating, Denies hematochezia, Denies constipation, Denies GI cramping, Denies dysphagia, Denies excessive flatus, Denies early satiety, Denies heartburn, Denies diarrhea, Denies nausea, Denies odynophagia, Denies vomiting and Denies hematemesis Skin/Breast Denies pruritus, Denies lesions, Denies rash and Denies jaundice Neuro Reports Normal hearing present and Denies Abnormal speech present Endo Denies fatigue Aller/Immun Denies throat swelling and Denies tongue swelling Physical Exam Const General: cooperative, no acute distress, well developed and well groomed Nutritional Appearance: well nourished and overweight Orientation/consciousness: oriented to person, oriented to place and oriented to time Limitations: language barrier HEENT Head: Yes normocephalic and Yes atraumatic Eyes General: appearance normal, both eyes and all related structures Pupils: Equal, round and reactive pupils present Neck Neck: Yes normal visual inspection and Yes no lymphadenopathy Thyroid: Thyroid normal Resp Effort & Inspection: normal respiratory effort and able to speak in complete sentences Auscultation: clear to auscultation bilaterally Cardio Rate: regular rate Rhythm: regular rhythm Heart sounds: Normal, physiologic split S2 sound present Peripheral pulses: radial pulses present and posterior tibial pulses present GI Inspection: No distended and No Abdominal panniculus present Palpation (GI): Soft to palpation, nontender, no guarding, not rigid, No hepatosplenomegaly present and Hernia present umbilical Percussion: Yes normal to percussion Auscultation: normal bowel sounds Rectal Exam - Male: Yes deferred Skin General skin exam: no rashes or lesions noted, turgor normal, skin not dry, no jaundice, No spider nevi and no striae Rashes: no rashes Nails: normal Neuro General: oriented to person, oriented to place and oriented to time Cranial nerves: Yes Equal, round and reactive pupils present and Yes Normal hearing present Speech: No Abnormal speech present Extrem General: Yes normal to inspection, No clubbing, No cyanosis and No edema Psych Appearance: grossly normal and well kempt Mental Status: mental status grossly normal Speech and movement: Normal speech and movement present Affect: normal affect Attitude: cooperative Thought process: Normal thought process present and not confabulating Thought content: Normal thought content present Insight: Fair insight present (Psych) Judgement: Fair judgement present (Psych) Assessment & Plan Assessment & Plan (1) Tubular adenoma of colon: Comment: Jazmyne-AWILDA= TA Code(s): D16 - Benign neoplasm of colon, unspecified Category: Medical Plan He had a prior scope [place] [address] Elkins with a TA. He denies any bowel or upper GI problems. No anes or sed problems No ID problems His cardiac conditions are well controlled and he denies any respiratory problems. He had a prior scope [place] [address] Elkins with a TA. Orders: Orders Colonoscopy - GI Use Only Today - Benign neoplasm of colon, unspecified Medications: New peg 3350-electrolytes 236-22.74-6.74 -5.86 gram (Golytely) until fecal effluent is clear; do not exceed a total volume of 2,000 mL 240 mL PO Q10M 1 day 4,000 mL 0RF Z12.11 - Encounter for screening for malignant neoplasm of colon bisacodyl (Dulcolax (bisacodyl)) 10 mg (2 x 5 mg) PO BEDTIME 2 days 4 tabs 0RF Coding Level of Care Code New Pt Level 3 (81868) Diagnoses Tubular adenoma of colon D104.12
[2023-11-30 09:34] VITALS: BP 156/91; PULSE 61; BMI 23.5
== END 2023-11-30 10:09 | disposition home or self-care (01) ==
PROVIDERS: PCP Internal Medicine; Visit Provider Nurse Practitioner
DX: D12.6 Benign neoplasm of colon, unspecified (principal)
CPT/HCPCS: 99203

== ENCOUNTER → 2023-11-30 09:19 | Outpatient (BNVA) | payer MEDICARE, SELFPAY | PROVIDERS: PCP Internal Medicine; Visit Provider Nurse Practitioner | DX: Z01.818 Encounter for other preprocedural examination (principal); D12.6 Benign neoplasm of colon, unspecified | CPT/HCPCS: 99202 ==

== ENCOUNTER 2024-01-18 09:43 | Outpatient (REF) | payer MEDICARE, SELFPAY ==
[2024-01-18 10:08] LABS: MANUAL DIFF FLAG NO
[2024-01-18 10:44] LABS: Basophils Absolute Auto 0.1 X10*3/uL (0.0-0.2); Basophils Percent Auto 1.2 % (0-2); Eosinophils Absolute Auto 0.3 X10*3/uL (0.0-0.4); Eosinophils Percent Auto 5.1 % (0-4); Hematocrit 41.7 % (42.0-52.0); Hemoglobin 13.6 g/dl (14.0-18.0); Imm Gran Abs Auto 0.02 X10*3/uL (0.00-0.03); Imm Gran Pct Auto 0.3 % (0.0-0.4); Lymphocytes Absolute Auto 1.9 X10*3/uL (1.2-4.9); Lymphocytes Percent Auto 31.7 % (20-40); Mean Corpuscular HGB Conc 32.6 g/dl (31.0-36.0); Mean Corpuscular Hemoglobin 27.8 pg (27.0-33.0); Mean Corpuscular Volume 85.1 fL (80.0-98.0); Mean Platelet Volume 10.7 fL (9.4-12.4); Monocytes Absolute Auto 0.5 X10*3/uL (0.1-1.2); Neutrophils Absolute Auto 3.1 x10*3/uL (2.0-8.3); Neutrophils Percent Auto 53.7 % (45-73); Platelet Count 189 X10*3/uL (160-400); Red Cell Distribution Width 13.2 % (11.0-16.0); White Blood Count 5.9 X10*3/uL (4.8-10.8)
[2024-01-18 11:39] LABS: Prostate Specific Antigen Scr 0.57 ng/mL (<0.05-4.0)
[2024-01-18 11:46] LABS: Alanine Aminotransferase 30 U/L (0-40); Alkaline Phosphatase 96 U/L (39-117); Anion Gap 11 (12-20); Aspartate Amino Transferase 26 U/L (5-37); Bilirubin Total 1.1 mg/dL (0.0-1.0); Blood Urea Nitrogen 14 mg/dL (9-16); Calcium 9.1 mg/dL (8.4-10.2); Carbon Dioxide 28 mmol/L (22-29); Chloride 107 mmol/L (96-108); Cholesterol 75 mg/dL (<200); Estimated Glomerular Filt Rate > 60; Glucose Random 78 mg/dL (60-115); HDL Cholesterol 33 mg/dL (>40); LDL Cholesterol Calculated 32 mg/dL (<100); Sodium 142 mmol/L (135-145); Triglycerides 50 mg/dL (<150)
== END 2024-01-18 09:44 | disposition home or self-care (01) ==
LOC: HO.LAB 09:43
PROVIDERS: PCP Internal Medicine; Visit Provider Internal Medicine
DX: E78.00 Pure hypercholesterolemia, unspecified (principal); I10 Essential (primary) hypertension; N40.0 Benign prostatic hyperplasia without lower urinary tract symptoms; R10.13 Epigastric pain; Z68.24 Body mass index [BMI] 24.0-24.9, adult; Z12.5 Encounter for screening for malignant neoplasm of prostate
CPT/HCPCS: 36415; 80053; 80061; 84153; 85025

== ENCOUNTER 2024-04-10 06:30 | Day surgery (SDC) | payer MEDICARE, SELFPAY ==
[2024-04-06 09:26] VITALS: BMI 23.4
--- NOTE | 2024-04-09 09:12 | HO.ANESPROP2 ---
HPI - Anesthesia Eval Consult details Narrative: 73yo M for Colonoscopy Follows [facility] Cardiology for CAD s/p STEMI, stent 2022. Stable at 12/2023 office visit with routine 1 year f/u [facility] Active Problems Active Problems: All Active Problems Tubular adenoma of colon (Acute) Nephrolithiasis (Acute) Hypertension (Acute) History of myocardial infarction (Acute) Coronary artery disease (Acute) Past Medical History Medical History (Updated 04/06/24 @ 09:26 by Wilma Bean RN) Nephrolithiasis CAD (coronary artery disease) Myocardial infarction HTN (hypertension) Family History Family History Father Bone cancer Brother Throat cancer Daughter Breast cancer Brain tumor Sister Liver cancer Surgical History Surgical History (Updated 04/06/24 @ 09:38 by Wilma Bean RN) Hx of cholecystectomy H/O colonoscopy S/P ureteral stent placement H/O cystoscopy H/O heart artery stent Social History Social History Alcohol intake: former Patient Tobacco Use Status: Never used Tobacco Meds Allergies Allergy/AdvReac Type Severity Reaction Status Date / Time No Known Allergies Allergy Verified 11/30/23 09:39 Home Medications ?Medication ?Instructions ?Recorded ?Confirmed ?Last Taken ?Type aspirin 81 mg chewable tablet 1 tab PO DAILY 11/30/23 04/06/24 Unknown History atorvastatin 80 mg tablet 80 mg PO DAILY 11/30/23 04/06/24 Unknown History carvedilol 6.25 mg tablet 6.25 mg PO BID 11/30/23 04/06/24 Unknown History clopidogrel 75 mg tablet 75 mg PO DAILY 11/30/23 04/06/24 Unknown History pantoprazole 40 mg tablet,delayed 40 mg PO DAILY 11/30/23 04/06/24 Unknown History release sennosides 8.6 mg tablet (senna) 8.6 mg PO BEDTIME 11/30/23 04/06/24 Unknown History valsartan 80 mg tablet 80 mg PO DAILY 11/30/23 04/06/24 Unknown History Exam Height,Weight and Vital Signs: Height 5 ft 6 in Weight 65.771 kg Pertinent Lab Results Pertinent Lab Results: Laboratory Tests 11/13/24 10:06 WBC 5.9 Hgb 13.6 L Hct 41.7 L Plt Count 189 Sodium 142 Potassium 4.0 Chloride 107 Carbon Dioxide 28 BUN 14 Creatinine 1.10
[2024-04-10 07:08] VITALS: BMI 23.6
[2024-04-10 07:13] VITALS: BP 169/90; PULSE 74; RESP 15; TEMP 36.7; O2SAT 98
[2024-04-10] MEDS: Lactated Ringers 1,000 ML 100 ML IVCONT (07:29)
--- NOTE | 2024-04-10 07:54 | P.CONAN_ITS ---
[facility] Active Problems Active Problems: All Active Problems Tubular adenoma of colon (Acute) Nephrolithiasis (Acute) Hypertension (Acute) History of myocardial infarction (Acute) Coronary artery disease (Acute) Past Medical History Medical History GERD (gastroesophageal reflux disease) Nephrolithiasis CAD (coronary artery disease) Myocardial infarction HTN (hypertension) Functional capacity: independent ambulation Family History Family History Father Bone cancer Brother Throat cancer Daughter Breast cancer Brain tumor Sister Liver cancer Family history of problems with anesthesia: No Surgical History Surgical History Hx of cholecystectomy H/O colonoscopy S/P ureteral stent placement H/O cystoscopy H/O heart artery stent History of Problems with Anesthesia: No Social History Social History Alcohol intake: former Patient Tobacco Use Status: Former Tobacco user Use of substances other than those prescribed or required for medical reasons: No Are you DNR?: No Advance Directives: No Advance Directives Information Provided: Yes Meds Allergies Allergy/AdvReac Type Severity Reaction Status Date / Time No Known Allergies Allergy Verified 04/10/24 07:05 Active Medications: Current Medications Lactated Ringer's (Lr) 1,000 mls @ 100 mls/hr IVCONT .Q10H ELEN Last Admin: 04/10/24 07:29 Dose: 100 mls/hr Home Medications ?Medication ?Instructions ?Recorded ?Confirmed ?Last Taken ?Type aspirin 81 mg chewable tablet 1 tab PO DAILY 11/30/23 04/10/24 04/06/24 History atorvastatin 80 mg tablet 80 mg PO DAILY 11/30/23 04/10/24 Unknown History carvedilol 6.25 mg tablet 6.25 mg PO BID 11/30/23 04/10/24 Unknown History clopidogrel 75 mg tablet 75 mg PO DAILY 11/30/23 04/10/24 04/06/24 History pantoprazole 40 mg tablet,delayed 40 mg PO DAILY 11/30/23 04/10/24 Unknown History release sennosides 8.6 mg tablet (senna) 8.6 mg PO BEDTIME 11/30/23 04/10/24 Unknown History valsartan 80 mg tablet 80 mg PO DAILY 11/30/23 04/10/24 Unknown History Exam Height,Weight and Vital Signs: Height 5 ft 6 in Weight 66.224 kg Last Vital Signs Temp 98.0 F 04/10/24 07:13 Pulse 74 04/10/24 07:13 Resp 15 04/10/24 07:13 BP 169/90 H 04/10/24 07:13 Pulse Ox 98 04/10/24 07:13 O2 Del Method Room Air 04/10/24 07:13 Airway Mallampati Class: II TM Dist: >3cm Neck ROM: Full Heart: RRR Lungs: CYA Assessment and Plan Assessment Anesthesia Assessment: Anesthesia Plan Discussed and Chart Reviewed Final Anesthetic Review Family History of Problems with Anesthesia: No History of Problems with Anesthesia: No NPO: Yes ASA Class: II Final Preanesthetic Review: Meds/Allgs Chart Reviewed, Consent Obtained/Reviewed and Anes Risks/Benef Reviewed Patient Risk: Low Procedure Risk: Low Anesthetic Plan Anesthetic Plan: MAC: Disposition: Standard PACU
--- NOTE | 2024-04-10 07:54 | MHC.SHP ---
Pre-Procedural Eval Section A - 24 Hr Update-Section A only Date of Service: 04/10/24 Section B - Complete if H&P > 30 days Chief Complaint: Benign neoplasm of colon, unspecified Details of Present Illness: PMX Coronary artery disease status post MO Hypertension Tubular adenoma Nephrolithiasis * SURGICAL HISTORY Cardiac stent Cystoscopy Urethral stent and ureter stent cholecystectomy * ALLERGIES Lisinopril Present Medications: see Short Stay Collaborative assessment Allergies: Allergies Allergy/AdvReac Type Severity Reaction Status Date / Time No Known Allergies Allergy Verified 04/10/24 07:05 Review of Systems Review of Systems Comment: 10 point ROS negative Exam Exam Comment: Gen appear: No acute distress HEENT: no icterus Chest: No overt resp distress Abd: soft, nontender, nondistended Psych: Stable affect, answering questions appropriately Neuro: A/Ox3 noted to move all extremities spontaneously Ext: no peripheral edema Plan Diagnosis/Plan: Unchanged I have reviewed the history and physical and performed a pertinent physical examination on my patient. No changes have occurred unless specified. Time Spent With Patient Time: Total time managing care of this patient today ____ minutes.
--- NOTE | 2024-04-10 09:04 | P.OPN-COLO_ITS ---
Colonoscopy Operative Note Operative Note Date of Service: 04/10/24 Narrative: Procedure: Colonoscopy Indication: Personal history of polyps Endoscopist: Nikole Malagon MD Anesthesia Provider: Dr Thania Miller Anesthesia type: MAC Instrument: Olympus [id number]-[id number] Consent: Indication, risks vs benefits, and alternatives were discussed with the patient who gave written informed consent to proceed. An cut out stitcher was utilized to assist with the consent. Monitoring: EKG, pulse, pulse oximetry and blood pressure were monitored throughout the procedure. Please see anesthesia flowsheet. Procedure: The patient was brought to the procedure room and placed in the left lateral decubitus position. IV medications were administered by the anesthesia provider in attendance. A digital rectal exam was performed which was normal. The colonoscope which was then inserted through the anus and advanced through the colon to the cecum at cm,and terminal ileum. Appendiceal orifice and ileocecal valve were identified. Mucosa was carefully examined under high definition white light as the instrument was slowly withdrawn in a retrograde panoramic fashion. Retroflexion was performed in rectum. The procedure was not difficult. There were no immediate obvious complications. The quality of the prep was BBPS: 2+3+2 = adequate Withdrawal time 7 minutes. Limitations: No limitations. Findings: Mucosa: Normal to cecum and terminal ileum. Protruding lesions: * 1 sessile polyp of size 3 mm in cecum. Cold snare polypectomy was performed. The polyp was completely removed and retrieved. * Medium internal hemorrhoids without stigmata of recent bleeding. Excavated lesions: * Diffuse diverticulosis of whole colon. Impression: 1. Normal colon and terminal ileum mucosa 2. Total of 1 polyp removed 3. Internal hemorrhoids 4. Diverticulosis Recommendations: - Follow path results. - Repeat colonoscopy in 7-10 years if polyp is an adenoma and pt in good health. - OK to resume antiplatelet therapy. - Follow up in GI office PRN
[2024-04-10 09:05] VITALS: BP 112/68; PULSE 68; RESP 16; TEMP 36.3; O2SAT 96
[2024-04-10 09:20] VITALS: BP 136/82; PULSE 67; RESP 16; TEMP 36.1; O2SAT 97
[2024-04-10 09:31] VITALS: BP 147/82; PULSE 60; RESP 16; O2SAT 98
== END 2024-04-10 10:01 | disposition home or self-care (01) ==
PROVIDERS: PCP Internal Medicine; Visit Provider Internal Medicine
PROC: 0DJD8ZZ Inspection of Lower Intestinal Tract, Via Natural or Artificial Opening Endoscopic (ICD-10-PCS; CPT 45378; principal; 2024-04-10 08:10)
DX: Z12.11 Encounter for screening for malignant neoplasm of colon (principal); Z86.0101 Personal history of adenomatous and serrated colon polyps; D12.0 Benign neoplasm of cecum; K57.30 Diverticulosis of large intestine without perforation or abscess without bleeding; K64.8 Other hemorrhoids; K21.9 Gastro-esophageal reflux disease without esophagitis; I25.10 Atherosclerotic heart disease of native coronary artery without angina pectoris; Z95.5 Presence of coronary angioplasty implant and graft; I25.2 Old myocardial infarction; I10 Essential (primary) hypertension; N20.0 Calculus of kidney; Z87.891 Personal history of nicotine dependence
CPT/HCPCS: 45385; 88305; J2003; J2704

== ENCOUNTER → 2024-04-10 06:30 | Outpatient (BNV) | payer MEDICARE, SELFPAY | PROVIDERS: PCP Internal Medicine; Visit Provider Internal Medicine | DX: Z12.11 Encounter for screening for malignant neoplasm of colon (principal); Z86.0100 Personal history of colon polyps, unspecified; K63.5 Polyp of colon; K57.90 Diverticulosis of intestine, part unspecified, without perforation or abscess without bleeding | CPT/HCPCS: 45385 ==

== ENCOUNTER 2025-01-07 06:08 | Outpatient (REF) | payer MEDICARE, SELFPAY ==
--- OUTSIDE RECORDS SUMMARY | 2025-01-07 06:12 | XMS_ITS | Patient Health Record ---
[facility] Address [address] [place] [address] Care Team Providers Care Braze Operator Name Role Phone Leela Isaacs Primary Care Provider Unavailab Gabriel Walton Unavailable [phone] Reason For Referral No Information Medications Medication SIG (Take, Route, Frequency, Duration) Notes Start Date End Date Status Suprep Bowel Prep 17.5g/3.13g/1.6g per 6 ounces as directed Orally once; Duration: 1 dose 05/17/2012 Active Lisinopril 5mg 03/07/2024 03/07/2024 Act orquidea Problems Problem Type SNOMED Code ICD Code Onset Dates Problem Status W/U Status Risk Notes Problem Colon cancer screening (231357443) Colon cancer screening (V76.51) Active confirmed Plan Of Treatment Future Test Test Name Order Date COLONOSCOPY 05/16/2012 Insurance Providers Payer Name Payer Address Payer Phone Subscriber Number Group Number Insured Name Patient Relationship to Insured Coverage Start Date Coverage End Date [facility] [address] [address] [place], [place] [id number] LEANN ROMEO Self - patient is the insured Medical (General) History Medical History History ICD Code hypertension Denies [place],DM,CVA,Lung disease,renal dise ase Surgical History Surgery Date(Month/Year) cholecystectomy kidney stones removed via cystoscopy
[2025-01-07 06:32] LABS: MANUAL DIFF FLAG NO
[2025-01-07 07:15] LABS: Hematocrit 44.1 % (42.0-52.0); Hemoglobin 13.7 g/dl (14.0-18.0); Imm Gran Abs Auto 0.02 X10*3/uL (0.00-0.03); Imm Gran Pct Auto 0.4 % (0.0-0.4); Lymphocytes Absolute Auto 1.6 X10*3/uL (1.2-4.9); Mean Corpuscular HGB Conc 31.1 g/dl (31.0-36.0); Mean Corpuscular Hemoglobin 27.5 pg (27.0-33.0); Mean Corpuscular Volume 88.6 fL (80.0-98.0); NRBC Abs Auto 0.000 X10*3/uL (0.0-0.012); NRBC Pct Auto 0.0 /100WBC (0.0-0.2); Platelet Count 196 X10*3/uL (160-400); Red Blood Count 4.98 X10*6/uL (4.60-5.80); White Blood Count 5.4 X10*3/uL (4.8-10.8)
[2025-01-07 07:42] LABS: Alanine Aminotransferase 25 U/L (0-40); Albumin Level 4.0 g/dL (3.5-5.0); Alkaline Phosphatase 89 U/L (39-117); Anion Gap 11 (12-20); Aspartate Amino Transferase 27 U/L (5-37); Blood Urea Nitrogen 17 mg/dL (9-16); Calcium 8.9 mg/dL (8.4-10.2); Carbon Dioxide 26 mmol/L (22-29); Chloride 109 mmol/L (96-108); Cholesterol 73 mg/dL (<200); Estimated Glomerular Filt Rate > 60; HDL Cholesterol 35 mg/dL (>40); Potassium 4.7 mmol/L (3.3-5.1); Sodium 141 mmol/L (135-145); Total Protein 6.9 g/dL (6.5-8.0); Triglycerides 48 mg/dL (<150)
== END 2025-01-07 06:09 | disposition home or self-care (01) ==
LOC: HO.LAB 06:08
PROVIDERS: PCP Internal Medicine; Visit Provider Internal Medicine
DX: I10 Essential (primary) hypertension (principal); N40.0 Benign prostatic hyperplasia without lower urinary tract symptoms; E78.00 Pure hypercholesterolemia, unspecified; Z95.818 Presence of other cardiac implants and grafts; Z12.5 Encounter for screening for malignant neoplasm of prostate
CPT/HCPCS: 36415; 80053; 80061; 84153; 85025